=== PATIENT | male | born 1945 | race Caucasian/White ===

== ENCOUNTER 2021-08-02 16:40 | Inpatient (IN) ==
[2021-08-02 22:00] LABS: ABS Lymphocytes 0.7 10^3/ul (1.0-4.8); ABS Monocytes 1.3 10^3/ul (0-0.8); ABS Neutrophils 11.6 10^3/ul (1.5-7.7); Hematocrit 43 % (42-52); Hemoglobin 14.4 g/dL (14.0-18.0); Mean Corpuscular HGB Conc 33 g/dL (31-36); Mean Corpuscular Hemoglobin 31 pg (27-31); Mean Corpuscular Volume 93 fL (80-94); Mean Platelet Volume 10.1 fL (7.4-10.4); Nucleated Red Blood Cells % 0.1; Platelet Count 184 10^3/uL (150-450); Red Blood Count 4.63 10^6 /uL (4.18-5.48); Red Cell Distribution Width 14 % (10-15); White Blood Count 13.6 10^3/uL (3.5-10.8)
[2021-08-02 22:06] LABS: INR 1.51 (0.86-1.15)
[2021-08-02 22:15] LABS: Albumin 3.9 g/dL (3.2-5.2); Albumin/Globulin Ratio 1.1 (1-3); C Reactive Protein 59.47 mg/L (<8.01); Calcium 9.2 mg/dL (8.6-10.3); Globulin 3.4 g/dL (2-4); Potassium 3.9 mmol/L (3.5-5.0); Total Bilirubin 1.9 mg/dL (0.2-1.0); Total Protein 7.3 g/dL (6.4-8.9); eGFR CKD-EPI 63.7 (>60)
[2021-08-02 22:16] LABS: Magnesium 1.7 mg/dL (1.9-2.7)
[2021-08-02] MEDS ORDERED: Iohexol 300 (CONTRAST) 10 ML SDV IV ONE (22:18)
[2021-08-02 22:20] LABS: BNP 447 pg/mL (<=100)
[2021-08-02] MEDS ORDERED: NS 0.9% 1000 ml BAG 1,000 ML IV ONE (22:20)
[2021-08-02 22:34] LABS: Ammonia 40 mcmol/L (16-53)
[2021-08-02] MEDS ORDERED: cefTRIAXone 1 gm/50 mL NS BAG 1 GM/50 ML BAG IV ONE (23:25)
[2021-08-03 00:58] LABS: Urine Appearance Clear; Urine Bilirubin Negative (Negative); Urine Blood 2+ (Negative); Urine Color Yellow; Urine Glucose Negative (Negative); Urine Ketones 1+ (Negative); Urine Nitrite Negative (Negative); Urine Protein 1+(30 mg/dL) (Negative); Urine Urobilinogen Negative (Negative)
[2021-08-03 01:04] LABS: Urine Bacteria 1+ (Absent); Urine Red Blood Cell 2+(6-10/hpf) (Absent); Urine Squamous Epithelial Cell Present (Absent); Urine White Blood Cell Trace(0-5/hpf) (Absent)
[2021-08-03 01:12] LABS: Urine Specific Gravity > 1.060 (1.002-1.030)
[2021-08-03] MEDS ORDERED: Polyethylene Glycol 3350 17 GM PACKET PO PRN (01:22)
[2021-08-03] MEDS ORDERED: Fluticasone NASAL SPRAY 50MCG 16 gm SPRAY BTL INTRANASAL PRN (01:22)
[2021-08-03] MEDS ORDERED: cefTRIAXone 1 gm/50 mL NS BAG 1 GM/50 ML BAG IV ONE (01:29)
[2021-08-03] MEDS ORDERED: Magnesium Sulfate 2 gm BAG 2 GM/50 ML BAG IVPB ONE (02:46)
[2021-08-03 03:35] LABS: TSH Ultra Thyroid Stim Horm 2.97 mcIU/mL (0.34-5.60)
[2021-08-03 06:55] LABS: ABS Lymphocytes 0.5 10^3/ul (1.0-4.8); ABS Monocytes 1.3 10^3/ul (0-0.8); ABS Neutrophils 10.7 10^3/ul (1.5-7.7); Hematocrit 37 % (42-52); Hemoglobin 12.4 g/dL (14.0-18.0); Lymphocyte % 3.6 %; Mean Corpuscular HGB Conc 34 g/dL (31-36); Mean Corpuscular Hemoglobin 31 pg (27-31); Mean Corpuscular Volume 94 fL (80-94); Mean Platelet Volume 9.5 fL (7.4-10.4); Platelet Count 144 10^3/uL (150-450); Red Blood Count 3.96 10^6 /uL (4.18-5.48); Red Cell Distribution Width 14 % (10-15); White Blood Count 12.5 10^3/uL (3.5-10.8)
[2021-08-03 07:08] LABS: Urine Osmo 678 mOsm/kg (150-1150)
[2021-08-03 08:47] LABS: Albumin 3.3 g/dL (3.2-5.2); Calcium 8.4 mg/dL (8.6-10.3); Globulin 3.2 g/dL (2-4); Magnesium 2.2 mg/dL (1.9-2.7); Potassium 3.8 mmol/L (3.5-5.0); Total Bilirubin 1.2 mg/dL (0.2-1.0); Total Protein 6.5 g/dL (6.4-8.9); eGFR CKD-EPI 73.2 (>60)
[2021-08-03 09:16] LABS: Osmolality Serum 269 mOsm/kg (275-295)
[2021-08-03] MEDS ORDERED: NS 0.9% 1000 ml BAG 1,000 ML IV ONE (09:23)
[2021-08-03] MEDS ORDERED: cefTRIAXone 2 GM ADDV.VIAL 2 GM in NS 0.9% 100 ml BAG 100 ML IV SCH (15:00)
[2021-08-03] MEDS ORDERED: cefTRIAXone 1 gm/50 mL NS BAG 1 GM/50 ML BAG IVPB SCH ×2 (22:00→23:00)
[2021-08-04] MEDS ORDERED: cefTRIAXone 2 GM ADDV.VIAL 2 GM in NS 0.9% 100 ml BAG 100 ML IV SCH (01:00)
[2021-08-04 05:03] LABS: Hematocrit 36 % (42-52); Hemoglobin 12.3 g/dL (14.0-18.0); Mean Corpuscular HGB Conc 34 g/dL (31-36); Mean Corpuscular Hemoglobin 31 pg (27-31); Mean Corpuscular Volume 92 fL (80-94); Mean Platelet Volume 9.2 fL (7.4-10.4); Platelet Count 144 10^3/uL (150-450); Red Blood Count 3.93 10^6 /uL (4.18-5.48); Red Cell Distribution Width 14 % (10-15); White Blood Count 7.7 10^3/uL (3.5-10.8)
[2021-08-04 05:25] LABS: C Reactive Protein 71.81 mg/L (<8.01); Calcium 7.7 mg/dL (8.6-10.3); Phosphorus 2.5 mg/dL (2.5-5.0); Potassium 3.4 mmol/L (3.5-5.0); eGFR CKD-EPI 75.8 (>60)
[2021-08-04] MEDS ORDERED: NS 0.9% 1000 ml BAG 1,000 ML IV ONE ×2 (06:56→07:07)
[2021-08-04 07:03] LABS: ABS Lymphocytes 0.8 10^3/ul (1.0-4.8); ABS Monocytes 1.4 10^3/ul (0-0.8); ABS Neutrophils 5.5 10^3/ul (1.5-7.7); Eosinophil % 0.5 %; Lymphocyte % 10.6 %; Nucleated Red Blood Cells % 0.1; RBC Morphology Normal (Normal)
[2021-08-04 09:12] LABS: Free T4 0.98 ng/dL (0.61-1.12)
[2021-08-04] MEDS: Potassium Chlor 20 meq TAB.ER PO SCH ×2 (09:52→13:42)
[2021-08-04 11:25] LABS: Albumin 2.8 g/dL (3.2-5.2); Direct Bilirubin 0.1 mg/dL (0.03-0.18); Globulin 2.7 g/dL (2-4); Total Bilirubin 0.5 mg/dL (0.2-1.0); Total Protein 5.5 g/dL (6.4-8.9)
[2021-08-04 11:26] LABS: Indirect Bilirubin 0.4 mg/dL (0.3-1.0)
[2021-08-04] MEDS: Ampicillin ADVAN 2 GM in NS 0.9% 100 ml BAG 100 ML IVPB SCH ×3 (13:41→23:49)
[2021-08-05] MEDS: Ampicillin ADVAN 2 GM in NS 0.9% 100 ml BAG 100 ML IVPB SCH ×2 (05:33→12:16)
[2021-08-05 06:47] LABS: Calcium 7.7 mg/dL (8.6-10.3); Phosphorus 2.4 mg/dL (2.5-5.0); Potassium 3.5 mmol/L (3.5-5.0); eGFR CKD-EPI 87.9 (>60)
[2021-08-05] MEDS ORDERED: Potassium Phosphate IV 15 MMOLE in NS 0.9% 250 ml 250 ML IVPB ONE (11:00)
[2021-08-05 15:33] VITALS: BP 119/62
== END 2021-08-05 17:00 | disposition home or self-care (01) | DRG 872 ==
LOC: ED 16:40 → EDHOLD 08-03 01:20 → SUATTDRO 08-03 01:20 → MED 08-03 09:42
PROVIDERS: ADMIT Internal Medicine; ATTEND Internal Medicine

== ENCOUNTER 2022-02-03 10:27 | Inpatient (IN) ==
[2022-02-03 10:59] LABS: ABS Basophils 0.1 10^3/ul (0-0.2); ABS Eosinophils 0.1 10^3/ul (0-0.6); ABS Lymphocytes 1.1 10^3/ul (1.0-4.8); ABS Monocytes 0.6 10^3/ul (0-0.8); ABS Neutrophils 3.5 10^3/ul (1.5-7.7); Eosinophil % 2.4 %; Hematocrit 30 % (42-52); Hemoglobin 9.7 g/dL (14.0-18.0); Lymphocyte % 20.7 %; Mean Corpuscular HGB Conc 32 g/dL (31-36); Mean Corpuscular Hemoglobin 30 pg (27-31); Mean Corpuscular Volume 95 fL (80-94); Mean Platelet Volume 9.3 fL (7.4-10.4); Nucleated Red Blood Cells % 0.1; Platelet Count 257 10^3/uL (150-450); Red Blood Count 3.19 10^6 /uL (4.18-5.48); Red Cell Distribution Width 18 % (10-15); White Blood Count 5.5 10^3/uL (3.5-10.8)
[2022-02-03 11:02] LABS: INR 1.48 (0.89-1.11)
[2022-02-03 11:38] LABS: Albumin 3.4 g/dL (3.2-5.2); Calcium 8.8 mg/dL (8.6-10.3); Globulin 3.3 g/dL (2-4); Total Protein 6.7 g/dL (6.4-8.9)
[2022-02-03] MEDS ORDERED: Lactated Ringers 1000 ml BAG 1,000 ML IV ONE (11:39)
[2022-02-03] MEDS ORDERED: Iodixanol (CONTRAST) 320 MG/ML 100 ML SDV IV ONE (11:52)
[2022-02-03] MEDS ORDERED: Pantoprazole 80 mg in NS BAG 80 MG/250 ML BAG IV ONE (12:17)
[2022-02-03] MEDS ORDERED: Ondansetron 4 mg VIAL 2 MG/ML 2 ml VIAL IV ONE (12:17)
[2022-02-03 12:39] LABS: High Sensitivity Troponin 1 Hr 5 pg/mL (<20)
[2022-02-03] MEDS ORDERED: Prothrombin Complex Conc. DOSE = Units Factor IX (nine) IV SLOW PU ONE (13:02)
[2022-02-03] MEDS ORDERED: Pantoprazole VIAL 40 MG VIAL IV ONE (13:06)
[2022-02-03] MEDS ORDERED: Octreotide Acetate 50 MCG in NS 0.9% 50 ML 50 ML IV ONE (13:19)
[2022-02-03] MEDS ORDERED: NS 0.9% 1000 ml BAG 1,000 ML IV ONE (13:54)
[2022-02-03 13:57] LABS: Hematocrit 21 % (42-52); Hemoglobin 6.8 g/dL (14.0-18.0)
[2022-02-03] MEDS ORDERED: Octreotide Acetate 500 MCG in NS 0.9% 100 ml BAG 100 ML IV SCH (14:00)
[2022-02-03] MEDS ORDERED: cefTRIAXone 2 gm/50 mL D5W 2 GM/50 ML BAG IV ONE (14:21)
[2022-02-03] MEDS ORDERED: Octreotide Acetate 500 MCG in NS 0.9% 100 ML IV SCH (16:00)
[2022-02-03 16:42] LABS: Urine Appearance Clear; Urine Bilirubin Negative (Negative); Urine Blood Negative (Negative); Urine Color Yellow; Urine Glucose Negative (Negative); Urine Ketones Negative (Negative); Urine Nitrite Negative (Negative); Urine Protein Negative (Negative); Urine Urobilinogen 0.2 (Negative) (Negative)
[2022-02-03] MEDS ORDERED: Midazolam 10 mg/10 ml VIAL 1 mg/ml 10 ml VIAL (10 mg) ONE (17:30)
[2022-02-03] MEDS ORDERED: fentaNYL 100 mcg/2 ml 50 MCG/ML VIAL ONE ×2 (17:30→19:25)
[2022-02-03] MEDS ORDERED: Rocuronium 50 mg VIAL 10 mg/ml 5 ml VIAL (50 mg) ONE (18:35)
[2022-02-03] MEDS ORDERED: Succinylcholine 200 mg VIAL 20 mg/ml 10 ml VIAL (200 mg) ONE (18:35)
[2022-02-03] MEDS ORDERED: Propofol 10 mg/ml 100 ML BTL 100 ML ONE (18:37)
[2022-02-03] MEDS ORDERED: Propofol 10 MG/ML 20 ML BTL ONE (18:43)
[2022-02-03] MEDS ORDERED: Norepinephrine 16MCG/ML BAGD5W 4,000 MCG/250 ML BAG IV ONE (18:45)
[2022-02-03] MEDS ORDERED: Propofol 10 MG/ML 20 ML BTL IV PUSH ONE (19:13)
[2022-02-03] MEDS ORDERED: Rocuronium 50 mg VIAL 10 mg/ml 5 ml VIAL (50 mg) IV ONE (19:13)
[2022-02-03] MEDS ORDERED: fentaNYL 100 mcg/2 ml 50 MCG/ML VIAL IV SLOW PU ONE (19:51)
[2022-02-03 19:54] LABS: Hematocrit 29 % (42-52); Hemoglobin 9.4 g/dL (14.0-18.0)
[2022-02-03] MEDS ORDERED: Propofol 10 mg/ml 100 ML BTL 100 ML IV SCH (20:00)
[2022-02-03] MEDS ORDERED: Norepinephrine 16MCG/ML BAG NS 4,000 MCG/250 ML BAG IV SCH (21:00)
[2022-02-03 21:18] LABS: PCO2 Arterial 32 mmHg (35-45); PO2 Arterial 127 mmHg (80-100)
[2022-02-03 22:12] VITALS: BP 98/72
[2022-02-03] MEDS ORDERED: Pantoprazole 80 mg in NS BAG 80 MG/250 ML BAG IV SCH (23:45)
[2022-02-04] MEDS ORDERED: CMCS: FLUTICAS/UMECLI/VILANT 100-62.5-25 MDI (NF) INH SCH (09:00)
[2022-02-04] MEDS ORDERED: Pantoprazole VIAL 40 MG VIAL IV SCH (09:00)
[2022-02-04] MEDS ORDERED: cefTRIAXone 1 gm/50 mL D5W 1 GM/50 ML BAG IV SCH (16:00)
== END 2022-02-04 00:48 | disposition short-term general hospital (02) | DRG 299 ==
LOC: ED 10:27 → EDHOLD 14:27 → ICU 15:15
PROVIDERS: ADMIT Internal Medicine; ATTEND Internal Medicine

== ENCOUNTER 2022-02-27 02:01 | Inpatient (IN) ==
[2022-02-27 02:35] LABS: ABS Lymphocytes 1.1 10^3/ul (1.0-4.8); ABS Neutrophils 15.7 10^3/ul (1.5-7.7); Hematocrit 35 % (42-52); Hemoglobin 10.8 g/dL (14.0-18.0); Lymphocyte % 6.3 %; Mean Corpuscular HGB Conc 31 g/dL (31-36); Mean Corpuscular Hemoglobin 29 pg (27-31); Mean Corpuscular Volume 93 fL (80-94); Mean Platelet Volume 9.1 fL (7.4-10.4); Platelet Count 300 10^3/uL (150-450); Red Blood Count 3.75 10^6 /uL (4.18-5.48); Red Cell Distribution Width 18 % (10-15); White Blood Count 17.8 10^3/uL (3.5-10.8)
[2022-02-27 02:42] LABS: INR 1.55 (0.89-1.11)
[2022-02-27 02:43] LABS: Activated Partial Thrombo Time 34.9 seconds (26.0-38.0)
[2022-02-27 02:45] LABS: PCO2 Arterial 22 mmHg (35-45); PO2 Arterial 103 mmHg (80-100)
[2022-02-27 02:58] LABS: High Sens Troponin Baseline 5 pg/mL (<20)
[2022-02-27] MEDS ORDERED: Vancomycin 1,000 MG in NS 0.9% 250 ml 250 ML IVPB ONE (03:01)
[2022-02-27] MEDS ORDERED: Piperacillin/Tazobac ADVAN 3.375 GM in NS 0.9% 100 ml BAG 100 ML IV ONE (03:01)
[2022-02-27 03:29] LABS: ALT 35 U/L (7-52); Albumin 2.2 g/dL (3.2-5.2); Albumin/Globulin Ratio 0.6 (1-3); Alkaline Phosphatase 146 U/L (35-149); Blood Urea Nitrogen 44 mg/dL (6-24); C Reactive Protein 116.24 mg/L (<8.01); CO2 Carbon Dioxide 21 mmol/L (22-32); Calcium 7.9 mg/dL (8.6-10.3); Chloride 98 mmol/L (101-111); Globulin 3.6 g/dL (2-4); Glucose 85 mg/dL (70-100); Sodium 130 mmol/L (135-145); Total Protein 5.8 g/dL (6.4-8.9); eGFR CKD-EPI 47.2 (>60)
[2022-02-27 03:37] LABS: Anion Gap 11 mmol/L (2-11)
[2022-02-27] MEDS ORDERED: Iodixanol (CONTRAST) 320 MG/ML 100 ML SDV IV ONE (03:51)
[2022-02-27 04:13] LABS: High Sensitivity Troponin 1 Hr 9 pg/mL (<20)
[2022-02-27 04:59] LABS: Potassium Redraw 5.3 mmol/L (3.5-5.0)
[2022-02-27 05:01] LABS: Urine Appearance Cloudy; Urine Bilirubin Negative (Negative); Urine Blood Negative (Negative); Urine Color Amber; Urine Glucose Negative (Negative); Urine Ketones Negative (Negative); Urine Nitrite Negative (Negative); Urine Protein Negative (Negative); Urine Specific Gravity 1.016 (1.002-1.030); Urine Urobilinogen Negative (Negative)
[2022-02-27 05:13] LABS: Urine Bacteria Absent (Absent); Urine Red Blood Cell 2+(6-10/hpf) (Absent); Urine Squamous Epithelial Cell Present (Absent); Urine White Blood Cell 3+(>20/hpf) (Absent); Urine Yeast Present (Absent)
[2022-02-27] MEDS: Heparin DRIP 25,000 UNITS BAG 25,000 UNITS/500 ML BAG IV SCH (05:52)
[2022-02-27] MEDS ORDERED: Lactated Ringers 1000 ml BAG 1,000 ML IV SCH (06:00)
[2022-02-27] MEDS ORDERED: Heparin 5000 UNITS/ML 1 mL VIAL IV SCH (06:00)
[2022-02-27] MEDS ORDERED: Fluticasone NASAL SPRAY 50MCG 16 gm SPRAY BTL INTRANASAL PRN (07:30)
[2022-02-27] MEDS: FLUTICAS/UMECLI/VILANT 100-62.5-25 MDI (NF) INH SCH (08:35)
[2022-02-27] MEDS ORDERED: Albumin Human 25% 25 GM/100 ML BTL IV ONE (09:24)
[2022-02-27] MEDS ORDERED: Norepinephrine 16MCG/ML BAG NS 4,000 MCG/250 ML BAG IV SCH (11:00)
[2022-02-27] MEDS ORDERED: Norepinephrine 16MCG/ML BAGD5W 4,000 MCG/250 ML BAG IV SCH (11:00)
[2022-02-27] MEDS ORDERED: Albumin Human 5% 12.5 GM/250 ML BTL IV ONE (11:04)
[2022-02-27] MEDS ORDERED: Zosyn per Pharmacy NOTE FOLLOW UP SCH (12:00)
[2022-02-27] MEDS ORDERED: Vancomycin per Pharmacy 1 EA NOTE FOLLOW UP SCH (12:00)
[2022-02-27] MEDS ORDERED: NS 0.9% 1000 ml BAG 1,000 ML IV SCH (13:15)
[2022-02-27 14:16] LABS: Calcium 7.3 mg/dL (8.6-10.3); Potassium 4.6 mmol/L (3.5-5.0); eGFR CKD-EPI 42.2 (>60)
[2022-02-27] MEDS: ZOSYN 3.375 GM Q8H per EXTENDED INFUSION IV SCH ×2 (15:43→22:11)
[2022-02-27 16:31] LABS: Albumin 2.3 g/dL (3.2-5.2); Direct Bilirubin 0.6 mg/dL (0.03-0.18); Globulin 2.4 g/dL (2-4); Total Bilirubin 1.6 mg/dL (0.2-1.0); Total Protein 4.7 g/dL (6.4-8.9)
[2022-02-27] MEDS: Pantoprazole VIAL 40 MG VIAL IV SCH (17:42)
[2022-02-27 20:54] LABS: Phosphorus 4.3 mg/dL (2.5-5.0)
[2022-02-27] MEDS: Norepinephrine 16MCG/ML BAGD5W 4,000 MCG/250 ML BAG IV SCH ×2 (21:17→23:51)
[2022-02-27] MEDS: Saline FLUSH-CENTRAL 10 ML SYRINGE CENT\\PICC SCH (23:51)
[2022-02-28] MEDS: ZOSYN 3.375 GM Q8H per EXTENDED INFUSION IV SCH ×3 (05:08→21:03)
[2022-02-28 05:10] LABS: Hematocrit 28 % (42-52); Hemoglobin 8.6 g/dL (14.0-18.0); Mean Corpuscular HGB Conc 31 g/dL (31-36); Mean Corpuscular Hemoglobin 28 pg (27-31); Mean Corpuscular Volume 91 fL (80-94); Mean Platelet Volume 9.1 fL (7.4-10.4); Platelet Count 255 10^3/uL (150-450); Red Blood Count 3.05 10^6 /uL (4.18-5.48); Red Cell Distribution Width 18 % (10-15); White Blood Count 19.6 10^3/uL (3.5-10.8)
[2022-02-28] MEDS ORDERED: Senna TAB 8.6 mg TAB PO PRN (05:14)
[2022-02-28] MEDS: Heparin DRIP 25,000 UNITS BAG 25,000 UNITS/500 ML BAG IV SCH (05:27)
[2022-02-28 05:38] LABS: ABS Basophils 0.1 10^3/ul (0-0.2); ABS Lymphocytes 0.7 10^3/ul (1.0-4.8); ABS Monocytes 0.9 10^3/ul (0-0.8); Anisocytosis 1+; Eosinophil % 0.1 %; Lymphocyte % 3.4 %; Nucleated Red Blood Cells % 0.1; Polychromasia 1+
[2022-02-28 05:58] LABS: Calcium 7.5 mg/dL (8.6-10.3); Magnesium 2.1 mg/dL (1.9-2.7); Phosphorus 4.4 mg/dL (2.5-5.0); Potassium 4.7 mmol/L (3.5-5.0); Vancomycin Random 7.1 mcg/mL; eGFR CKD-EPI 36.6 (>60)
[2022-02-28] MEDS ORDERED: Levothyroxine 100 MCG/5 ML VIAL IV SCH (06:00)
[2022-02-28] MEDS ORDERED: Vancomycin Random Level NOTE FOLLOW UP ONE (06:00)
[2022-02-28 06:11] LABS: TSH Ultra Thyroid Stim Horm 8.29 mcIU/mL (0.34-5.60)
[2022-02-28 06:12] LABS: Free T3 1.5 pg/mL (2.5-3.9)
[2022-02-28 06:13] LABS: Free T4 0.93 ng/dL (0.61-1.12)
[2022-02-28] MEDS: Norepinephrine 16MCG/ML BAGD5W 4,000 MCG/250 ML BAG IV SCH (07:02)
[2022-02-28] MEDS: Saline FLUSH-CENTRAL 10 ML SYRINGE CENT\\PICC SCH ×2 (08:34→21:04)
[2022-02-28] MEDS: Pantoprazole VIAL 40 MG VIAL IV SCH (08:47)
[2022-02-28] MEDS ORDERED: Vancomycin 1000 MG in NS 0.9% 250 ML IVPB ONE (09:00)
[2022-02-28] MEDS: FLUTICAS/UMECLI/VILANT 100-62.5-25 MDI (NF) INH SCH (09:33)
[2022-02-28] MEDS: Magic MouthWash2-BEN/MAAL/LIDO/NYST 240 ML BTL (alt formulation) SWISH SPIT SCH ×3 (13:11→21:03)
[2022-02-28] MEDS: PHENYLEPHRINE DRIP IVPREMIX 50 MG/250 ML BAG IV SCH (14:07)
[2022-02-28] MEDS ORDERED: Furosemide 20 mg/2 ml IV VIAL IV SLOW PU ONE (22:45)
[2022-03-01] MEDS: ZOSYN 3.375 GM Q8H per EXTENDED INFUSION IV SCH (04:16)
[2022-03-01] MEDS: PHENYLEPHRINE DRIP IVPREMIX 50 MG/250 ML BAG IV SCH ×3 (05:01→22:46)
[2022-03-01] MEDS ORDERED: Vancomycin Random Level NOTE FOLLOW UP ONE (06:00)
[2022-03-01 06:30] LABS: Hematocrit 29 % (42-52); Hemoglobin 9.2 g/dL (14.0-18.0); Mean Corpuscular HGB Conc 31 g/dL (31-36); Mean Corpuscular Hemoglobin 28 pg (27-31); Mean Corpuscular Volume 90 fL (80-94); Mean Platelet Volume 9.5 fL (7.4-10.4); Platelet Count 248 10^3/uL (150-450); Red Blood Count 3.26 10^6 /uL (4.18-5.48); Red Cell Distribution Width 18 % (10-15); White Blood Count 22.3 10^3/uL (3.5-10.8)
[2022-03-01 06:57] LABS: RBC Morphology Normal (Normal)
[2022-03-01 06:58] LABS: ABS Basophils 0.1 10^3/ul (0-0.2); ABS Monocytes 1.2 10^3/ul (0-0.8); ABS Neutrophils 19.9 10^3/ul (1.5-7.7); Eosinophil % 0.1 %; Lymphocyte % 4.7 %; Nucleated Red Blood Cells % 0.1
[2022-03-01 07:01] LABS: Calcium 7.2 mg/dL (8.6-10.3); Potassium 4.4 mmol/L (3.5-5.0); Vancomycin Random 11.1 mcg/mL; eGFR CKD-EPI 34.8 (>60)
[2022-03-01 07:45] LABS: Albumin 2.1 g/dL (3.2-5.2); Albumin/Globulin Ratio 0.8 (1-3); Direct Bilirubin 0.7 mg/dL (0.03-0.18); Globulin 2.7 g/dL (2-4); Indirect Bilirubin 0.8 mg/dL (0.3-1.0); Total Bilirubin 1.5 mg/dL (0.2-1.0); Total Protein 4.8 g/dL (6.4-8.9)
[2022-03-01] MEDS: FLUTICAS/UMECLI/VILANT 100-62.5-25 MDI (NF) INH SCH (07:50)
[2022-03-01] MEDS: Magic MouthWash2-BEN/MAAL/LIDO/NYST 240 ML BTL (alt formulation) SWISH SPIT SCH ×4 (08:22→19:49)
[2022-03-01] MEDS: Saline FLUSH-CENTRAL 10 ML SYRINGE CENT\\PICC SCH ×2 (10:36→19:49)
[2022-03-01] MEDS ORDERED: Heparin 2 UNITS/ML 1000 mls 1,000 ML IV ONE (12:33)
[2022-03-01] MEDS ORDERED: fentaNYL 100 mcg/2 ml 50 MCG/ML VIAL ONE (12:47)
[2022-03-01] MEDS ORDERED: Lidocaine 1% VIAL 10 MG/ML VIAL 30 ML ONE (12:47)
[2022-03-02] MEDS ORDERED: Metoprolol Tartrate 5 mg VIAL 5 ml VIAL (1 mg/ml) IV ONE (04:06)
[2022-03-02 04:50] LABS: Hematocrit 30 % (42-52); Hemoglobin 9.4 g/dL (14.0-18.0); Mean Corpuscular HGB Conc 31 g/dL (31-36); Mean Corpuscular Hemoglobin 28 pg (27-31); Mean Corpuscular Volume 90 fL (80-94); Mean Platelet Volume 9.2 fL (7.4-10.4); Platelet Count 209 10^3/uL (150-450); Red Blood Count 3.35 10^6 /uL (4.18-5.48); Red Cell Distribution Width 17 % (10-15); White Blood Count 20.1 10^3/uL (3.5-10.8)
[2022-03-02 05:07] LABS: ABS Basophils 0.1 10^3/ul (0-0.2); ABS Eosinophils 0.1 10^3/ul (0-0.6); ABS Lymphocytes 0.7 10^3/ul (1.0-4.8); ABS Monocytes 1.2 10^3/ul (0-0.8); ABS Neutrophils 18.1 10^3/ul (1.5-7.7); ABS Nucleated RBC 0.1 10^3/ul; Eosinophil % 0.3 %; Lymphocyte % 3.5 %; Nucleated Red Blood Cells % 0.4
[2022-03-02 05:49] LABS: Calcium 7.1 mg/dL (8.6-10.3); Magnesium 2.3 mg/dL (1.9-2.7); Potassium 4.7 mmol/L (3.5-5.0)
[2022-03-02] MEDS ORDERED: Vancomycin Random Level NOTE FOLLOW UP ONE (06:00)
[2022-03-02 07:05] LABS: Albumin 1.9 g/dL (3.2-5.2); Albumin/Globulin Ratio 0.7 (1-3); Direct Bilirubin 0.7 mg/dL (0.03-0.18); Globulin 2.9 g/dL (2-4); Indirect Bilirubin 0.8 mg/dL (0.3-1.0); Total Bilirubin 1.5 mg/dL (0.2-1.0); Total Protein 4.8 g/dL (6.4-8.9)
[2022-03-02] MEDS: FLUTICAS/UMECLI/VILANT 100-62.5-25 MDI (NF) INH SCH (07:13)
[2022-03-02] MEDS: PHENYLEPHRINE DRIP IVPREMIX 50 MG/250 ML BAG IV SCH ×3 (07:15→17:00)
[2022-03-02] MEDS: Magic MouthWash2-BEN/MAAL/LIDO/NYST 240 ML BTL (alt formulation) SWISH SPIT SCH ×3 (07:55→16:29)
[2022-03-02] MEDS: Saline FLUSH-CENTRAL 10 ML SYRINGE CENT\\PICC SCH ×2 (07:56→20:42)
[2022-03-02] MEDS ORDERED: Lidocaine 1% VIAL 10 MG/ML VIAL 30 ML ONE (08:39)
[2022-03-02] MEDS ORDERED: Lidocaine 1% VIAL 10 MG/ML VIAL 30 ML INJ ONE (08:40)
[2022-03-02] MEDS ORDERED: LORazepam 2 mg VIAL 1 ml IV PUSH PRN (18:39)
[2022-03-02] MEDS ORDERED: Lorazepam PYXIS KEY PRN (18:42)
[2022-03-02] MEDS ORDERED: Lorazepam PYXIS KEY ONE (18:44)
[2022-03-02] MEDS ORDERED: LORazepam 2 mg VIAL 1 ml ONE (18:45)
[2022-03-02] MEDS ORDERED: Morphine 4 MG/ML VIAL (1 ml) ONE (18:45)
[2022-03-02 19:55] VITALS: BP 67/50
== END 2022-03-02 19:54 | disposition expired | DRG 871 ==
LOC: ED 02:01 → EDHOLD 06:16 → ICU 07:22
PROVIDERS: ADMIT Internal Medicine; ATTEND Internal Medicine